=== PATIENT | female | born 1990 | race Caucasian/White ===

== ENCOUNTER 2018-04-14 15:33 | Day surgery (SDC) | payer BC ==
--- NOTE | 2018-04-14 16:51 | ED ---
Female Urogenital HPI - General Chief complaint: Vaginal Bleeding Stated complaint: miscarriage Time Seen by Provider: 04/14/18 16:19 Source: patient Mode of arrival: ambulatory Limitations: no limitations - History of Present Illness Initial comments: Patient is a 27-year-old female, 0 2 0 1 who presents with a CC of heavy vaginal bleeding after a miscarriage about 9 weeks gestation. Patient took Cytotec on Tuesday, passed products of conception, and states that her bleeding was improving however today she had increased bleeding. The patient states that she has been going through 1 pad every hour. She denies any lightheadedness or dizziness. She states that she is having some abdominal cramping however it is not as bad as it was on Tuesday. Patient states that she is here camping trip and that her regular PHOTOGRAPH PRINTER is Dr. Kate Pike in [place]. she denies any other complaints today. - Related Data Home Medications Medication Instructions Recorded Confirmed No Known Home Medications 04/14/18 04/14/18 Allergies Allergy/AdvReac Type Severity Reaction Status Date / Time No Known Allergies Allergy Verified 04/14/18 16:31 Review of Systems ROS Statement: Those systems with pertinent positive or pertinent negative responses have been documented in the HPI. ROS Other: All systems not noted in ROS Statement are negative. Genitourinary: Reports: as per HPI Past Medical History Past Medical History: No Reported History History of Any Multi-Drug Resistant Organisms: None Reported Past Surgical History: Section Past Psychological History: No Psychological Hx Reported Smoking Status: Never smoker Past Alcohol Use History: None Reported Past Drug Use History: None Reported General Exam Limitations: no limitations General appearance: alert, in no apparent distress Head exam: Present: atraumatic, normocephalic Eye exam: Present: normal appearance ENT exam: Present: normal exam Neck exam: Present: normal inspection Respiratory exam: Present: normal lung sounds bilaterally. Absent: respiratory distress, wheezes Cardiovascular Exam: Present: regular rate, normal rhythm GI/Abdominal exam: Present: soft. Absent: distended, tenderness Rectal exam: Present: deferred Extremities exam: Present: normal inspection Back exam: Present: normal inspection Neurological exam: Present: alert, oriented X3 Psychiatric exam: Present: normal affect, normal mood, depressed Skin exam: Present: warm, dry, intact Course Vital Signs 04/14/18 04/14/18 04/14/18 15:37 18:48 19:33 Temperature 98.4 F 98.8 F 99.2 F Pulse Rate 90 80 90 Respiratory 18 18 16 Rate Blood Pressure 134/81 121/58 116/74 O2 Sat by Pulse 100 99 98 Oximetry 04/14/18 04/14/18 21:47 23:04 Temperature 98.9 F 97.9 F Pulse Rate 76 81 Respiratory 18 18 Rate Blood Pressure 118/76 120/69 O2 Sat by Pulse 98 98 Oximetry Medical Decision Making - Medical Decision Making Patient presents with a chief complaint of vaginal bleeding. On initial evaluation, vitals are stable, patient is in no acute distress. Patient recently had a miscarriage, status post Cytotec on Tuesday. She is currently bleeding through 1 pad an hour. Patient to be evaluated basic labs, type and screen, and transvaginal ultrasound to evaluate for retained products of conception. 6:46pm lab evaluation shows a stable hemaglobin, labs otherwise unremarkable. US shows clots within a thickened cervix, with evidence of an incomplete . attempts made to contact the patients OB, Dr. Kate Pike but were unsuccessful. Case discussed with Dr. Edwards who will come to the ED to evaluate the patient and likely perform D&C. results discussed with the patient , she and her are agreeable with the care plan. 7:27 PM Patient evaluated by Dr. Edwards who will proceed with d&C. - Lab Data Result diagrams: 04/14/18 17:04/14/18 17:01 Lab Results 04/14/18 04/14/18 04/14/18 Range/Units 17: 17:01 17:01 WBC 9.9 (3.8-10.6) k/uL RBC 3.92 (3.80-5.40) m/uL Hgb 11.8 (11.4-16.0) gm/dL Hct 35.5 (34.0-46.0) % MCV 90.5 (80.0-100.0) fL MCH 30.2 (25.0-35.0) pg MCHC 33.4 (31.0-37.0) g/dL RDW 12.7 (11.5-15.5) % Plt Count 283 (150-450) k/uL Neutrophils % 74 % Lymphocytes % 19 % Monocytes % 4 % Eosinophils % 1 % Basophils % 0 % Neutrophils # 7.3 (1.3-7.7) k/uL Lymphocytes # 1.9 (1.0-4.8) k/uL Monocytes # 0.4 (0-1.0) k/uL Eosinophils # 0.1 (0-0.7) k/uL Basophils # 0.0 (0-0.2) k/uL Sodium 142 (137-145) mmol/L Potassium 3.8 (3.5-5.1) mmol/L Chloride 106 (98-107) mmol/L Carbon Dioxide 26 (22-30) mmol/L Anion Gap 10 mmol/L BUN 13 (7-17) mg/dL Creatinine 0.64 (0.52-1.04) mg/dL Est GFR (CKD-EPI)AfAm >90 (>60 ml/min/1.73 sqM) Est GFR (CKD-EPI)NonAf >90 (>60 ml/min/1.73 sqM) Glucose 96 (74-99) mg/dL Calcium 8.9 (8.4-10.2) mg/dL Blood Type A Positive Blood Type Confirm Blood Type Recheck CABO Indicated Antibody Screen NEGATIVE Spec Expiration Date 04/17/2018 - 230004/14/18 Range/Units 18:21 WBC (3.8-10.6) k/uL RBC (3.80-5.40) m/uL Hgb (11.4-16.0) gm/dL Hct (34.0-46.0) % MCV (80.0-100.0) fL MCH (25.0-35.0) pg MCHC (31.0-37.0) g/dL RDW (11.5-15.5) % Plt Count (150-450) k/uL Neutrophils % % Lymphocytes % % Monocytes % % Eosinophils % % Basophils % % Neutrophils # (1.3-7.7) k/uL Lymphocytes # (1.0-4.8) k/uL Monocytes # (0-1.0) k/uL Eosinophils # (0-0.7) k/uL Basophils # (0-0.2) k/uL Sodium (137-145) mmol/L Potassium (3.5-5.1) mmol/L Chloride (98-107) mmol/L Carbon Dioxide (22-30) mmol/L Anion Gap mmol/L BUN (7-17) mg/dL Creatinine (0.52-1.04) mg/dL Est GFR (CKD-EPI)AfAm (>60 ml/min/1.73 sqM) Est GFR (CKD-EPI)NonAf (>60 ml/min/1.73 sqM) Glucose (74-99) mg/dL Calcium (8.4-10.2) mg/dL Blood Type Blood Type Confirm A Positive Blood Type Recheck Antibody Screen Spec Expiration Date Disposition Clinical Impression: Incomplete Disposition: HOME SELF-CARE Condition: Good Is patient prescribed a controlled substance at d/c from ED?: No
[2018-04-14 17:15] LABS: Basophils % (A) 0 %; Eosinophils # (A) 0.1 k/uL (0-0.7); Eosinophils % (A) 1 %; HCT 35.5 % (34.0-46.0); HGB 11.8 gm/dL (11.4-16.0); Lymphocytes # (A) 1.9 k/uL (1.0-4.8); Lymphocytes % (A) 19 %; MCH 30.2 pg (25.0-35.0); MCHC 33.4 g/dL (31.0-37.0); MCV 90.5 fL (80.0-100.0); Mean Platelet Volume 7.4; Monocytes # (A) 0.4 k/uL (0-1.0); Monocytes % (A) 4 %; Neutrophils # (A) 7.3 k/uL (1.3-7.7); Neutrophils % (A) 74 %; Platelet Count 283 k/uL (150-450); RBC 3.92 m/uL (3.80-5.40); RDW 12.7 % (11.5-15.5); WBC 9.9 k/uL (3.8-10.6)
[2018-04-14 17:37] LABS: Anion Gap 10 mmol/L; Blood Urea Nitrogen 13 mg/dL (7-17); Calcium 8.9 mg/dL (8.4-10.2); Carbon Dioxide 26 mmol/L (22-30); Chloride 106 mmol/L (98-107); Glucose 96 mg/dL (74-99); Potassium 3.8 mmol/L (3.5-5.1); Sodium 142 mmol/L (137-145)
--- NOTE | 2018-04-14 17:58 | US ---
EXAMINATION TYPE: Transabdominal DATE OF EXAM: 10/11/17 COMPARISON: NONE CLINICAL HISTORY: Pain. Ultrasound at different facility showed neg heart tones on 04/10/2018. Given meds for miscarriage. Started bleeding extra heavy today compared to previous days. Big clots. EXAM PERFORMED: Transvaginal (TV) and Transabdominal (TA) EXAM MEASUREMENTS: GESTATIONAL AGE / DATING Dates by LMP: (9 weeks/2 days) EDC: 11/15/2018 Dates by Current Scan for: No IUP seen at this time MATERNAL ANATOMY Uterus: 9.8 x 5.8 x 5.4 cm Right Ovary: 3.1 x 1.4 x 1.6 cm, only seen transabdominally Left Ovary: not visualized due to overlying bowel gas Post CDS / Adnexa: no free fluid Presence of free fluid: no Presence of corpus luteal cyst: right ovarian hypoechoic lesion - 1.4 x 1.1 x 1.0 cm Presence of subchorionic bleed: no GESTATION / SURVEY IUP: No IUP seen at this time Date of LMP: 02/08/2018, Beta HcG (if available): Not available at this time No GS seen. Retained products seen within cervical canal. IMPRESSION: Uterus is empty. There is some thickening of the cervical canal consistent with blood clot. No adnexa l mass. Findings consistent with incomplete .
--- NOTE | 2018-04-14 19:54 | P.HPOB ---
History of Present Illness H&P Date: 04/14/18 Chief Complaint: Incomplete 27 year old presents to the ER with vaginal bleeding. She was diagnosed with a missed on 04-10 and given cytotec in [place]. Today she is having increased vaginal bleeding and US shows retained products of conception. Review of Systems All systems: negative Constitutional: Denies chills, Denies fever Eyes: denies blurred vision, denies pain Ears, nose, mouth and throat: Denies headache, Denies sore throat Cardiovascular: Denies chest pain, Denies shortness of breath Respiratory: Denies cough Gastrointestinal: Denies abdominal pain, Denies diarrhea, Denies nausea, Denies vomiting Genitourinary: Denies dysuria, Denies hematuria Musculoskeletal: Denies myalgias Integumentary: Denies pruritus, Denies rash Neurological: Denies numbness, Denies weakness Psychiatric: Denies anxiety, Denies depression Endocrine: Denies fatigue, Denies weight change Past Medical History Past Medical History: No Reported History History of Any Multi-Drug Resistant Organisms: None Reported Past Surgical History: Section (x2) Past Anesthesia/Blood Transfusion Reactions: Postoperative Nausea & Vomiting ( PONV) Past Psychological History: No Psychological Hx Reported Smoking Status: Never smoker Past Alcohol Use History: None Reported Past Drug Use History: None Reported Medications and Allergies Home Medications Medication Instructions Recorded Confirmed Type No Known Home Medications 04/14/18 04/14/18 History Allergies Allergy/AdvReac Type Severity Reaction Status Date / Time No Known Allergies Allergy Verified 04/14/18 16:31 Exam Osteopathic Statement: *. No significant issues noted on an osteopathic structural exam other than those noted in the History and Physical/Consult. Vital Signs Temp Pulse Resp BP Pulse Ox 04/14/18 19:33 99.2 F 90 16 116/74 98 04/14/18 18:48 98.8 F 80 18 121/58 99 04/14/18 15:37 98.4 F 90 18 134/81 100 Intake and Output 04/14/18 04/14/18 04/14/18 06:59 14:59 22:59 Other: Weight 68.039 kg HEart: RRR Lungs: CTAB Abdomen: soft, nontender Extremeties: neg jamir's Results Result Diagrams: 04/14/18 17:01 04/14/18 17:01 Assessment and Plan (1) Incomplete Current Visit: Yes Status: Acute Code(s): O03.4 - INCOMPLETE SPONTANEOUS WITHOUT COMPLICATION SNOMED Code(s): 234821010 Plan: 1. suction D&C, discussed all R/B/A with pt and her and all questions answered.
[2018-04-14] MEDS ORDERED: LIDOCAINE 1% INJ 10MG/ML (20 ML MDV) ONE (23:20)
[2018-04-14] MEDS ORDERED: KETOROLAC 30 MG/ML 1 ML VIAL ONE (23:20)
[2018-04-14] MEDS ORDERED: MIDAZOLAM 2 MG/2 ML VIAL ONE (23:20)
[2018-04-14] MEDS ORDERED: diphenhydrAMINE 50 MG/ML 1 ML VIAL ONE (23:20)
[2018-04-14] MEDS ORDERED: DEXAMETHASONE SOD PHOS (MDV) 100 MG/10 ML VIAL ONE (23:20)
[2018-04-14] MEDS ORDERED: fentaNYL (PF) 50 MCG/ML 2 ML AMP ONE (23:20)
[2018-04-14] MEDS ORDERED: PROPOFOL 10 MG/ML 20 ML VIAL IV ONE (23:20)
[2018-04-14] MEDS ORDERED: ONDANSETRON 4 MG/2 ML VIAL ONE (23:20)
[2018-04-14] MEDS ORDERED: LACTATED RINGERS 1,000 ML IV ONE (23:40)
--- NOTE | 2018-04-15 00:11 | P.OP ---
Date of Procedure: 04/15/18 Preoperative Diagnosis: 1. incomplete Postoperative Diagnosis: 1. same Procedure(s) Performed: Suction D&C Anesthesia: MAC Surgeon: Lidia Edwards Estimated Blood Loss (ml): 200 IV fluids (ml): 500 Urine output (ml): 10 Pathology: other (Products of conception) Condition: stable Disposition: PACU Operative Findings: Cervix was dilated to 1-2 cm. Tissue was sitting in the cervix and there was moderate amount of tissue in the uterus. Description of Procedure: Patient is taken the operating room where general anesthesia was obtained without difficulty. She draped normal sterile fashion dorsal lithotomy position , legs placed in candycane stirrups. Bladder was drained of all urine. Weighted speculum placed in the vagina, anterior lip the cervix was grasped with single-tooth tenaculum. Tissue was seen sitting at the open cervix. The tissue was grasped with a ring forceps and pulled out. The cervix was seen to be dilated and the #14 Hegar dilator was easily placed. The #12 curved suction curet was introduced into the uterus and hooked up to suction. This is passed several times to ensure all tissue and blood was removed. Sharp curet was then used to ensure all tissue had been removed. The suction curet was passed a few more times. Excellent hemostasis was seen. Patient tolerated procedure well, sponge and instrument counts correct 2. She was taken to recovery room in stable condition.
[2018-04-15 00:18] VITALS: RESP 16
[2018-04-15 01:42] VITALS: BP 102/69; PULSE 71; TEMP 97.3
== END 2018-04-15 01:58 | disposition home or self-care (01) ==
LOC: EC 15:33 → OR 22:04 → 6PED 04-15 00:27 → OR 04-15 01:58
PROVIDERS: ATTEND Obstetrics & Gynecology
DX: O03.4 Incomplete spontaneous abortion without complication (principal)
CPT/HCPCS: 59812; 99285; 36415; 86900; 86901; 88305; 80048; 85025; 86850; 76801; 76817; J2250; J1200; J2405; J2001; J3010; J1885; J1100; J2704